=== PATIENT | male | born 1985 | race American Indian/Alaskan Native ===

== ENCOUNTER 2019-04-11 14:40 | Emergency (ER) | payer BC, OTHER ==
[2019-04-11] MEDS ORDERED: ZOFRAN IV ONE (14:49)
[2019-04-11] MEDS ORDERED: ZOFRAN ONE (14:50)
[2019-04-11 16:25] LABS: Hematocrit 42.7 % (35.5-45.6); Mean Corpuscular HGB Conc 33 % (32-34); Mean Corpuscular Volume 86 fl (84-94); Platelet Count 181 K/mm3 (140-440); Red Blood Count 4.96 M/mm3 (3.65-5.03); Red Cell Distribution Width 15.5 % (13.2-15.2)
[2019-04-11 16:42] LABS: BUN/Creatinine Ratio 15; Blood Urea Nitrogen 16 mg/dL (9-20); Calcium 9.6 mg/dL (8.4-10.2); Hemolysis Index 24
[2019-04-11] MEDS ORDERED: BENTYL IM ONE (16:43)
[2019-04-11] MEDS ORDERED: TYLENOL PO ONE (16:43)
[2019-04-11] MEDS ORDERED: PEPCID IV ONE (16:43)
[2019-04-11] MEDS ORDERED: REGLAN IV ONE (16:45)
[2019-04-11] MEDS ORDERED: NACL 0.9% 1000 ML 1,000 ML IV ONE (16:46)
--- NOTE | 2019-04-11 16:46 | Emergency Department Report ---
ED General Adult HPI - General Chief complaint: Nausea/Vomiting/Diarrhea Stated complaint: N/V/D Time Seen by Provider: 04/11/19 16:34 Source: patient, family, EMS (ems notes not available at time of chart dictation), RN notes reviewed Mode of arrival: Stretcher Limitations: Physical Limitation - History of Present Illness Initial comments: This is a 33-year-old gentleman. The patient is not known to this provider previously. He reports that he may have a history of hypertension, and his primary care doctor is "Dr. Painter." The patient presents to the emergency room today with complaint of nontraumatic and relatively painless nausea, vomiting and diarrhea. The symptoms reportedly started 2 hours prior to presentation. He reports 4-5 episodes of nonbloody, nonbilious emesis. He denies testicular pain. He denies irritative, obstructive urinary symptoms. He reports feeling globally weak. He states "I can't move, I can't sit, can't d o anything." He denies severe headache, sore throat, he is not sure if he's had a fever. No recent travel. No recent antibiotic use. No sick contacts that he is aware of. He indicates that has never happened to him before. -: Sudden Severity scale (0 -10): 0 Consistency: constant Improves with: medication, rest Worsens with: eating - Related Data Previous Rx's Medication Instructions Recorded Last Taken Type Acetaminophen [Non-Aspirin Extra 500 mg PO Q6HR PRN #30 tablet 04/11/19 Unknown Rx Strength] Ciprofloxacin HCl [Ciprofloxacin 500 mg PO Q12HR #14 tab 04/11/19 Unknown Rx TAB] Ibuprofen [Motrin] 600 mg PO Q8H PRN #30 tablet 04/11/19 Unknown Rx Metoclopramide [Reglan] 10 mg PO QID PRN #30 tablet 04/11/19 Unknown Rx Promethazine [Phenergan SUPPOS] 50 mg NV Q6H PRN #20 supp.rect 04/11/19 Unknown Rx metroNIDAZOLE [Flagyl] 500 mg PO Q8HR #21 tablet 04/11/19 Unknown Rx Allergies Allergy/AdvReac Type Severity Reaction Status Date / Time No Known Allergies Allergy Verified 04/11/19 14:54 ED Review of Systems ROS: Stated complaint: N/V/D Other details as noted in HPI Constitutional: malaise, weakness Eyes: denies: eye discharge ENT: denies: epistaxis Respiratory: denies: cough Cardiovascular: denies: chest pain Gastrointestinal: nausea, vomiting, diarrhea Genitourinary: denies: dysuria, frequency Musculoskeletal: denies: arthralgia Neurological: weakness ED Past Medical Hx - Past Medical History Previous Medical History?: Yes Hx Hypertension: Yes - Social History Smoking Status: Current Every Day Smoker Substance Use Type: Alcohol - Medications Home Medications: Home Medications Medication Instructions Recorded Confirmed Last Taken Type Acetaminophen [Non-Aspirin Extra 500 mg PO Q6HR PRN #30 tablet 04/11/19 Unknown Rx Strength] Ciprofloxacin HCl [Ciprofloxacin 500 mg PO Q12HR #14 tab 04/11/19 Unknown Rx TAB] Ibuprofen [Motrin] 600 mg PO Q8H PRN #30 tablet 04/11/19 Unknown Rx Metoclopramide [Reglan] 10 mg PO QID PRN #30 tablet 04/11/19 Unknown Rx Promethazine [Phenergan SUPPOS] 50 mg NV Q6H PRN #20 supp.rect 04/11/19 Unknown Rx metroNIDAZOLE [Flagyl] 500 mg PO Q8HR #21 tablet 04/11/19 Unknown Rx ED Physical Exam - General Limitations: No Limitations General appearance: alert, anxious - Head Head exam: Present: atraumatic, normocephalic - Eye Eye exam: Present: normal appearance, EOMI. Absent: nystagmus - ENT ENT exam: Present: mucous membranes dry, normal external ear exam - Neck Neck exam: Present: normal inspection, full ROM. Absent: tenderness, meningismus - Respiratory Respiratory exam: Present: normal lung sounds bilaterally. Absent: respiratory distress - Cardiovascular Cardiovascular Exam: Present: normal rhythm, bradycardia, normal heart sounds. Absent: tachycardia, irregular rhythm, systolic murmur, diastolic murmur, rubs, gallop - GI/Abdominal GI/Abdominal exam: Present: soft. Absent: distended, tenderness, guarding, rebound, rigid, pulsatile mass - Rectal Rectal exam: Present: deferred - Extremities Exam Extremities exam: Present: normal inspection, full ROM, other (2+ pulses noted in the bilateral upper, lower extremities. Compartments soft. No long bony tenderness. The pelvis is stable.). Absent: joint swelling, calf tenderness - Back Exam Back exam: Present: normal inspection, full ROM. Absent: tenderness, CVA tenderness (R), CVA tenderness (L), paraspinal tenderness, vertebral tenderness - Neurological Exam Neurological exam: Present: alert, other (Extraocular movements intact. Tongue midline. No facial droop. Facial sensation intact to light touch in the V1, V2, V3 distribution bilaterally. 5 and 5 strength in 4 extremities.. Sensation is intact to light touch in 4 extremities.). Absent: motor sensory deficit - Psychiatric Psychiatric exam: Present: anxious, flat affect - Skin Skin exam: Present: warm, dry, intact, normal color. Absent: rash ED Course Vital Signs 04/11/19 04/11/19 14:53 19:36 Temperature 97.4 F L Pulse Rate 46 L 54 L Respiratory 12 18 Rate Blood Pressure 124/72 120/74 [Right] O2 Sat by Pulse 94 Oximetry - Reevaluation(s) Reevaluation #1: 04/11/19 18:13 Differential diagnosis, including are not limited to: Gastroenteritis, viral syndrome, colitis, diverticulitis, appendicitis, inflammatory bowel disease, cannabinoid hyperemesis syndrome, IBS Assessment and plan: 33-year-old gentleman, well-nourished, healthy-appearing, normotensive, with complaints of generalized weakness, nausea, vomiting, diarrhea. Clinically doubt acute surgical process. However, the patient appears to be quite weak. He requires assistance with turning. Uncertain if this is secondary to his current condition, or his unfamiliarity with being sic k. Therefore, we will treat his symptoms, and obtain CT scan of the abdomen and pelvis. We will reassess. Reevaluation #2: 04/11/19 20:47 Patient resting comfortably. Abdomen soft on repeat examination. Patient able to tolerate liquid feeds. No active vomiting. No active diarrhea as per nursing report. CT scan of the abdomen and pelvis suggests nonspecific colitis. Patient is a candidate for trial of oral outpatient antibiotic management. Discussed laboratory findings and CT scan findings with patient. Discussed need to abstain from alcohol, remain compliant with antibiotics, advance diet as tolerated, and to follow up with outpatient gastroenterology. The patient endorses understanding. His guest indicates that he has a trip planned for next week, to [place], and I encouraged the patient that I would not recommend travel at this point in time, that he should follow up with a primary care doctor or gastroenterology specialist for clearance for travel. ED Medical Decision Making - Lab Data Result diagrams: 04/11/19 15:59 04/11/19 15:59 Vital Signs 04/11/19 14:53 Temperature 97.4 F L Pulse Rate 46 L Respiratory 12 Rate Blood Pressure 124/72 [Right] O2 Sat by Pulse 94 Oximetry Lab Results 04/11/19 04/11/19 04/11/19 Range/Units 15:59 15:59 17:01 WBC 7.9 (4.5-11.0) K/mm3 RBC 4.96 (3.65-5.03) M/mm3 Hgb 14.0 (11.8-15.2) gm/dl Hct 42.7 (35.5-45.6) % MCV 86 (84-94) fl MCH 28 (28-32) pg MCHC 33 (32-34) % RDW 15.5 H (13.2-15.2) % Plt Count 181 (140-440) K/mm3 Sodium 137 (137-145) mmol/L Potassium 4.2 (3.6-5.0) mmol/L Chloride 97.0 L (98-107) mmol/L Carbon Dioxide 26 (22-30) mmol/L Anion Gap 18 mmol/L BUN 16 (9-20) mg/dL Creatinine 1.1 (0.8-1.5) mg/dL Estimated GFR > 60 ml/min BUN/Creatinine Ratio 15 % Glucose 110 H (75-100) mg/dL Calcium 9.6 (8.4-10.2) mg/dL Total Creatine Kinase 710 H (55-170) units/L Lipase 20 (13-60) units/L Salicylates (2.8-20.0) mg/dL Acetaminophen (10.0-30.0) ug/mL 04/11/19 04/11/19 Range/Units 17:01 17:01 WBC (4.5-11.0) K/mm3 RBC (3.65-5.03) M/mm3 Hgb (11.8-15.2) gm/dl Hct (35.5-45.6) % MCV (84-94) fl MCH (28-32) pg MCHC (32-34) % RDW (13.2-15.2) % Plt Count (140-440) K/mm3 Sodium (137-145) mmol/L Potassium (3.6-5.0) mmol/L Chloride (98-107) mmol/L Carbon Dioxide (22-30) mmol/L Anion Gap mmol/L BUN (9-20) mg/dL Creatinine (0.8-1.5) mg/dL Estimated GFR ml/min BUN/Creatinine Ratio % Glucose (75-100) mg/dL Calcium (8.4-10.2) mg/dL Total Creatine Kinase (55-170) units/L Lipase (13-60) units/L Salicylates < 0.3 L (2.8-20.0) mg/dL Acetaminophen < 5.0 L (10.0-30.0) ug/mL Vital Signs 04/11/19 04/11/19 14:53 19:36 Temperature 97.4 F L Pulse Rate 46 L 54 L Respiratory 12 18 Rate Blood Pressure 124/72 120/74 [Right] O2 Sat by Pulse 94 Oximetry - EKG Data -: EKG Interpreted by Ny EKG shows normal: sinus rhythm Rate: bradycardia - EKG Data 04/11/19 18:14 This is a sinus bradycardia, 46 bpm, normal axis, QTC prolonged, high lipids ventricular voltage, not having chest pain, abnormal EKG, no prior for comparison, this EKG is not consistent with ST elevation myocardial infarction. - Radiology Data Radiology results: report reviewed, image reviewed Critical care attestation.: If time is entered above; I have spent that time in minutes in the direct care of this critically ill patient, excluding procedure time. ED Disposition Clinical Impression: Nausea vomiting and diarrhea Disposition: -01 TO HOME OR SELFCARE Is pt being admited?: No Does the pt Need Aspirin: No Condition: Stable Instructions: Infectious Colitis (ED) Additional Instructions: CT scan of the abdomen and pelvis suggested colitis, nonspecific inflammation, questionable infection of the large intestine. Advance diet as tolerated. Patient may not want to eat solid food, for the next few days, and this is acceptable. Start with gentle fluids, such as water, Pedialyte, or mixture of half Gatorade, half water. Avoid consumption of alcohol for the next 14 days. Take the ciprofloxacin, metronidazole antibiotic as directed. Take ibuprofen, acetaminophen as needed for pain. Take Reglan as needed for nausea, and use a Phenergan suppository as needed for nausea not relieved by Reglan. Follow-up with the primary care doctor or gastroenterology specialist in 10-14 days for repeat checkup/evaluation. Not following up as recommended may result in an undiagnosed tumor, cancer, malignancy of the large intestine. 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 I recommend the patient not travel until symptoms improved, he has had a repeat medical evaluation by a physician or medical provider, and he is cleared to return to travel. Please return to the emergency room right away with new, worsening or different symptoms, or symptoms not present on the initial ER evaluation. [facility] is a local gastroenterology practice. Referrals: [facility] [Provider Group] - 7-10 days [facility] [Provider Group] - 7-10 days
[2019-04-11 19:38] VITALS: BP 120/74
[2019-04-11 19:40] LABS: Bilirubin,Urine NEG (Negative); Blood,Urine NEG (Negative); Color,Urine Yellow (Yellow); Mucus,Urine FEW /HPF; Protein,Urine <15 mg/dL mg/dL (Negative); Urobilinogen,Urine < 2.0 mg/dL (<2.0)
[2019-04-11 19:49] LABS: Amphetamine Screen,Urine PRESUMPTIVE NEGATIVE; Benzodiazepines Screen,Urine PRESUMPTIVE NEGATIVE; Cocaine Screen,Urine PRESUMPTIVE NEGATIVE; Methadone Screen,Urine PRESUMPTIVE NEGATIVE; Opiate Screen,Urine PRESUMPTIVE NEGATIVE
[2019-04-11 20:17] LABS: Cannabinoid Screen,Urine PRESUMPTIVE POSITIVE
--- NOTE | 2019-04-11 20:36 | Cat Scan Report ---
PROCEDURE: CT ABDOMEN PELVIS W CON TECHNIQUE: Computerized axial tomography of the abdomen and pelvis was performed after the IV inject ion of iodinated nonionic contrast. CT DOSE LENGTH PRODUCT: 896.4 mGycm HISTORY: n/v/d COMPARISONS: None . FINDINGS: Lower Lung best: Minimal dependent atelectasis. Lung bases otherwise are clear. Upper Abdomen: The liver, gallbladder, the adrenal glands, the pancreas and spleen are unremarkable. Kidneys, Ureters and Urinary bladder: Kidneys and ureters are unremarkable. Urinary bladder is only partially filled and difficult to evaluate. No gross abnormalities seen. No renal calculi masses or h ydronephrosis visualized. Retroperitoneum: No abnormalities are seen. No evidence of aortic aneurysm. Nonspecific subcentimeter lymph nodes are seen in the retroperitoneum. No pathologically enlarged ly mph nodes are identified. Bowel: There is mild wall thickening seen in the right side of the colon, transverse colon, descendi ng colon and sigmoid colon. The rectum appears to be spared. The appearance suggest a nonspecific dif fuse colitis. I do not see evidence of bowel obstruction. There is no ascites or free intraperitoneal gas identified. The appendix appears to be surgically absent. Reproductive organs: Prostate gland does not appear to be significantly enlarged. Other: No acute bone abnormalities identified. IMPRESSION: Mild wall thickening seen right-sided colon, transverse colon and descending colon and sigmoid colon sparing the rectum. Appearance suggesting nonspecific diffuse colitis. No evidence of bowel obstructi on or ascites. No other abnormalities are seen. This document is electronically signed by Ck Rosado MD., Apr 11 2019 08:34:16 PM ET
[2019-04-11] MEDS ORDERED: FLAGYL 500 MG/100 ML 500 MG/100 ML BAG IV ONE (20:49)
[2019-04-11] MEDS ORDERED: LEVAQUIN 500MG/100ML 500 MG/100 ML BAG IV ONE (20:49)
[2019-04-11] MEDS ORDERED: TORADOL IV ONE (21:39)
== END 2019-04-11 22:50 | disposition home or self-care (01) ==
LOC: ED 14:40
DX: R11.2 Nausea with vomiting, unspecified (principal); R19.7 Diarrhea, unspecified; I10 Essential (primary) hypertension; F17.200 Nicotine dependence, unspecified, uncomplicated
CPT/HCPCS: 36415; 74177; 80048; 80307; 81001; 82550; 83690; 85027; 87086; 93005; 93010; 96361; 96365; 96367; 96372; 96375; 99285; G0480; J0500; J1885; J1956; J2405; J2765; J7030; Q9967; 80320